=== PATIENT | female | born 1995 | race Caucasian/White ===

== ENCOUNTER 2016-08-14 14:53 | Outpatient (CLI) | payer OTHER ==
[~2016-08-14] VITALS: Ht 166.4 cm; Wt 84.1 kg
[~2016-08-14 14:53] MED LIST: ALBUTEROL SULF8.5 GM IH; ALLEGRA; BUPROPION HCL150 M2 PO; CALCIUM CITRAT200 MG PO; CIPRO500 MG PO; CLARITIN10 M1; CLARITIN10 M3 PO; Claritin,Alavart PO; DAILY VALUE1 EACH PO; DUONEB 2.5-0.5 M3 ML AEROSOL; ENDOCET 5-3251 EACH PO; IBUPROFEN800 MG PO; KEFLEX500 MG PO; LORATADINE; Motrin PO; NATALCARE RX1 TABLET PO; NITROFURANTOIN100 M3 PO; PREDNISONE20 MG PO; PREDNISONE50 MG PO; PRENATABS FA T1 EACH PO; PRENATAL PLUS1 EAC3 PO; PRENATAL TABLE1 EAC3 PO; PROAIR HFA8.5 GM; PROAIR HFA8.5 GM IH; PROVENTIL,2.5 MG/3 M IH; PROZAC; Percocet 5/325,Endoc PO; Proventil,Ventolin H IH; SINGULAIR10 MG; TYLENOL REGULA325 MG PO; ZOFRAN ODT4 MG PO; ZOFRAN4 MG PO
[2016-08-14] MEDS ORDERED: IRON325 MG PO (16:33)
[2016-08-14] MEDS ORDERED: COMPLEX B-1000.4 MG PO (16:33)
[2016-08-14] MEDS ORDERED: AZO STANDARD95 MG PO (16:57)
[2016-08-14 17:04] LABS: EOSINOPHIL COUNT 0.2 K/uL (0-0.3); HEMATOCRIT 33.8 % (36.0-46.0); IMMATURE GRANULOCYTE (%) 0.4 % (0.0-0.7); INSTRUMENT ABS NEUTROPHIL CT 5.8 K/uL; LYMPHOCYTE COUNT 1.7 K/uL (1.0-2.8); MCH 26.6 PG (29.0-34.0); MCHC 32.5 G/DL (30.0-36.0); MCV 81.8 FL (83-99); MEAN PLAT.VOLUME 11.9 uM^3 (9.5-12.4); MONOCYTE (%) 4.2 % (3-12); MONOCYTE COUNT 0.3 K/uL (0-0.8); NEUTROPHIL (%) 71.6 % (45-76); NEUTROPHIL COUNT 5.8 K/uL (1.8-6.4); PLATELET COUNT 136 K/uL (156-360); RBC DIS.WIDTH-CV 15.8 % (11.8-14.6); RBC DIS.WIDTH-SD 46.8 % (39-53); RED BLOOD COUNT 4.13 M/uL (3.80-5.20); WHITE BLOOD COUNT 8.1 K/uL (4.1-10.2)
[2016-08-14 17:40] LABS: AMPHETAMINES QUANT VALUE 0 NG/ML; BARBITUATES QUANT VALUE 0 NG/ML; BENZODIAZEPINES QUANT VALUE 0 NG/ML; BENZODIAZEPINES, URINE SCREEN Negative (200 ng/mL); OPIATES QUANTITATIVE VALUE 0 NG/ML; PHENCYCLIDINE QUANT VALUE 0 NG/ML
== END 2016-08-14 18:00 | disposition home or self-care (01) ==
LOC: LDRP-OP 14:53 → EME 14:53 → EDSTATUS 16:06 → 2WEST 16:08
PROVIDERS: Midwife
DX: Z03.79 Encounter for other suspected maternal and fetal conditions ruled out (principal); V49.40XA Driver injured in collision with unspecified motor vehicles in traffic accident, initial encounter; O99.842 Bariatric surgery status complicating pregnancy, second trimester; Z3A.21 21 weeks gestation of pregnancy; O99.212 Obesity complicating pregnancy, second trimester; E66.9 Obesity, unspecified; Z68.31 Body mass index [BMI] 31.0-31.9, adult; J45.909 Unspecified asthma, uncomplicated
CPT/HCPCS: 59025; 80306 90; 85025; 85460; 99281; 99284; G0378

== ENCOUNTER 2016-10-25 12:42 | Outpatient (CLI) | payer OTHER ==
[~2016-10-25 12:42] MED LIST changes: +AZO STANDARD95 MG PO; +COMPLEX B-1000.4 MG PO; +IRON325 MG PO
[2016-10-25 13:40] LABS: ADD MIUA? YES; BILIRUBIN NEGATIVE; BLOOD MODERATE; COLOR YELLOW ((YELLOW)); GLUCOSE (STRIP) NEGATIVE; KETONES 20; LEUKOCYTES MODERATE; NITRITE NEGATIVE; PROTEIN (STRIP) 100; SPECIFIC GRAVITY 1.009 (1.000-1.030); UROBILINOGEN 0.2 MG/DL (0.2-1.0)
[2016-10-25 13:44] LABS: EOSINOPHIL (%) 1.2 % (0-5); EOSINOPHIL COUNT 0.1 K/uL (0-0.3); HEMATOCRIT 29.7 % (36.0-46.0); IMMATURE GRANULOCYTE (%) 0.2 % (0.0-0.7); INSTRUMENT ABS NEUTROPHIL CT 5.9 K/uL; LYMPHOCYTE COUNT 1.8 K/uL (1.0-2.8); MCH 28.2 PG (29.0-34.0); MCV 85.3 FL (83-99); MEAN PLAT.VOLUME 13.4 uM^3 (9.5-12.4); MONOCYTE (%) 4.5 % (3-12); MONOCYTE COUNT 0.4 K/uL (0-0.8); NEUTROPHIL (%) 72.3 % (45-76); NEUTROPHIL COUNT 5.9 K/uL (1.8-6.4); PLATELET COUNT 103 K/uL (156-360); RBC DIS.WIDTH-CV 14.7 % (11.8-14.6); RBC DIS.WIDTH-SD 45.4 % (39-53); RED BLOOD COUNT 3.48 M/uL (3.80-5.20); WHITE BLOOD COUNT 8.2 K/uL (4.1-10.2)
[2016-10-25 14:10] LABS: BACTERIA 1+ /HPF; EPITHELIAL CELLS 2+ /HPF; MUCUS 2+ /LPF; RED BLOOD CELLS 30-40 /HPF (0-5); WHITE BLOOD CELLS 40-50 /HPF (0-5)
[2016-10-25 14:19] VITALS: BP 117/62
[2016-10-25 15:49] VITALS: BP 104/59
[2016-10-25 16:34] LABS: EOSINOPHIL COUNT 0.2 K/uL (0-0.3); HEMATOCRIT 32.2 % (36.0-46.0); IMMATURE GRANULOCYTE (%) 0.5 % (0.0-0.7); INSTRUMENT ABS NEUTROPHIL CT 5.7 K/uL; LYMPHOCYTE COUNT 1.9 K/uL (1.0-2.8); MCHC 32.6 G/DL (30.0-36.0); MCV 85.9 FL (83-99); MEAN PLAT.VOLUME 13.3 uM^3 (9.5-12.4); MONOCYTE (%) 4.6 % (3-12); MONOCYTE COUNT 0.4 K/uL (0-0.8); NEUTROPHIL (%) 69.7 % (45-76); NEUTROPHIL COUNT 5.7 K/uL (1.8-6.4); PLATELET COUNT 130 K/uL (156-360); RBC DIS.WIDTH-CV 14.7 % (11.8-14.6); RBC DIS.WIDTH-SD 45.4 % (39-53); RED BLOOD COUNT 3.75 M/uL (3.80-5.20); WHITE BLOOD COUNT 8.2 K/uL (4.1-10.2)
[2016-10-25 16:43] VITALS: BP 113/58
[2016-10-25 19:27] VITALS: BP 115/56
[2016-10-25 23:28] VITALS: BP 109/57
[2016-10-26 03:05] VITALS: BP 93/52
[2016-10-26 07:44] VITALS: BP 111/59
== END 2016-10-26 13:15 | disposition home or self-care (01) ==
LOC: LDRP-OP 12:42 → 2WEST 12:43 → LDRP-OP 01-16 20:27
PROVIDERS: Obstetrics & Gynecology
DX: O23.03 Infections of kidney in pregnancy, third trimester (principal); Z3A.31 31 weeks gestation of pregnancy
CPT/HCPCS: 59025; 76770; 81003; 85025; 85025 91; 87086; G0378; J0696

== ENCOUNTER 2016-12-03 11:54 | Inpatient (IN) | payer OTHER ==
[2016-12-03] VITALS (9 sets, daily range): BP systolic 111–126; BP diastolic 57–73
[~2016-12-03] VITALS: Ht 165.1 cm; Wt 92.0 kg
[2016-12-03 18:08] LABS: EOSINOPHIL (%) 1.9 % (0-5); EOSINOPHIL COUNT 0.1 K/uL (0-0.3); HEMATOCRIT 30.1 % (36.0-46.0); IMMATURE GRANULOCYTE (%) 0.3 % (0.0-0.7); INSTRUMENT ABS NEUTROPHIL CT 3.6 K/uL; LYMPHOCYTE COUNT 2.2 K/uL (1.0-2.8); MCH 27.5 PG (29.0-34.0); MCHC 32.6 G/DL (30.0-36.0); MCV 84.3 FL (83-99); MEAN PLAT.VOLUME 13.5 uM^3 (9.5-12.4); MONOCYTE (%) 5.9 % (3-12); MONOCYTE COUNT 0.4 K/uL (0-0.8); NEUTROPHIL (%) 57.1 % (45-76); NEUTROPHIL COUNT 3.6 K/uL (1.8-6.4); PLATELET COUNT 104 K/uL (156-360); RBC DIS.WIDTH-CV 14.2 % (11.8-14.6); RBC DIS.WIDTH-SD 43.4 % (39-53); RED BLOOD COUNT 3.57 M/uL (3.80-5.20); WHITE BLOOD COUNT 6.2 K/uL (4.1-10.2)
[2016-12-03 18:41] LABS: AMPHETAMINE NEGATIVE (500 ng/mL); BARBITURATES NEGATIVE (200 ng/mL); BENZODIAZEPINES NEGATIVE (150 ng/mL); COCAINE NEGATIVE (150 ng/mL); INTERNAL CONTROLS VALID? YES; METHADONE NEGATIVE (200 ng/mL); METHAMPHETAMINE NEGATIVE (500 ng/mL); OPIATES (MORPHINE) NEGATIVE (100 ng/mL); OXYCODONE NEGATIVE (100 ng/mL); PHENCYCLIDINE NEGATIVE (25 ng/mL); PROPOXYPHENE NEGATIVE (300 ng/mL); THC CANNABINOIDS PRESUMPTIVE POSITIVE (50 ng/mL); TRICYCLIC ANTIDEPRESSANTS NEGATIVE (300 ng/mL)
[2016-12-03 18:42] LABS: ADD MEDTOX COMMENT Y
[2016-12-04] VITALS (30 sets, daily range): BP systolic 93–129; BP diastolic 51–75
[2016-12-05] VITALS (11 sets, daily range): BP systolic 110–127; BP diastolic 58–75
[2016-12-06 07:32] VITALS: BP 117/60
[2016-12-06 14:46] VITALS: BP 116/64
[2016-12-07 07:12] VITALS: BP 92/53
[2016-12-07] MEDS ORDERED: Tylenol Extra Streng PO (09:44)
== END 2016-12-07 11:15 | disposition home or self-care (01) | DRG 775 ==
LOC: LDRP-OP → 2WEST 11:55 → LDRP-OP 01-23 05:33
PROVIDERS: Midwife
DX: O41.03X0 Oligohydramnios, third trimester, not applicable or unspecified (principal); O36.5990 Maternal care for other known or suspected poor fetal growth, unspecified trimester, not applicable or unspecified; O99.02 Anemia complicating childbirth; D50.9 Iron deficiency anemia, unspecified; O99.824 Streptococcus B carrier state complicating childbirth; O99.214 Obesity complicating childbirth; E66.9 Obesity, unspecified; O99.344 Other mental disorders complicating childbirth; F41.9 Anxiety disorder, unspecified; F31.9 Bipolar disorder, unspecified; M41.9 Scoliosis, unspecified; O99.52 Diseases of the respiratory system complicating childbirth; J45.909 Unspecified asthma, uncomplicated; O99.844 Bariatric surgery status complicating childbirth; Z37.0 Single live birth; Z3A.37 37 weeks gestation of pregnancy; Z68.31 Body mass index [BMI] 31.0-31.9, adult
CPT/HCPCS: 84999; 85025; C1755; G0378; J3010; J3370; J7120

== ENCOUNTER 2017-11-13 17:18 | Emergency (ER) | payer OTHER ==
[~2017-11-13] VITALS: Ht 165.1 cm; Wt 80.1 kg
[~2017-11-13 17:18] MED LIST changes: +Tylenol Extra Streng PO
[2017-11-13 17:37] LABS: HEMATOCRIT 34.5 % (36.0-46.0); MCH 25.6 PG (29.0-34.0); MCHC 31.9 G/DL (30.0-36.0); MCV 80.2 FL (83-99); PLATELET COUNT 179 K/uL (156-360); RBC DIS.WIDTH-CV 17.8 % (11.8-14.6); RBC DIS.WIDTH-SD 50.7 % (39-53); WHITE BLOOD COUNT 5.5 K/uL (4.1-10.2)
[2017-11-13 17:45] LABS: CHLORIDE 105 mEq/L (99-109); POTASSIUM 3.6 mEq/L (3.7-5.4); SODIUM 140 mEq/L (136-147)
[2017-11-13 17:47] LABS: GLUCOSE 83 mg/dL (70-99)
[2017-11-13 17:51] LABS: CREATININE 0.7 mg/dL (0.6-1.3); GFR ESTIMATE (CALCULATED) > 59 mL/min/
[2017-11-13 17:52] LABS: UREA NITROGEN (BUN) 5 mg/dL (9-23)
[2017-11-13 18:00] LABS: TROP-I INTERPRETATION NEGATIVE; TROPONIN-I < 0.01 ng/mL (0.0-0.30)
[2017-11-13 20:46] LABS: QUANTITATIVE HCG < 4.0 MIU/ML
[2017-11-13 21:20] LABS: TROP-I INTERPRETATION NEGATIVE; TROPONIN-I < 0.01 ng/mL (0.0-0.30)
[2017-11-13 21:56] VITALS: BP 135/73
== END 2017-11-13 21:57 | disposition home or self-care (01) ==
LOC: EME 17:18
PROVIDERS: Physician Assistant Medical
DX: R07.89 Other chest pain (principal); J45.909 Unspecified asthma, uncomplicated; Z87.440 Personal history of urinary (tract) infections; Z98.84 Bariatric surgery status; Z88.0 Allergy status to penicillin; Z88.1 Allergy status to other antibiotic agents; Z88.8 Allergy status to other drugs, medicaments and biological substances
CPT/HCPCS: 71046; 80048; 84484; 84702; 85027; 93005; 99281; 99284